=== PATIENT | female | born 2000 | race Caucasian/White ===

== ENCOUNTER 2020-10-08 09:03 | Emergency (ER) | payer OTHER ==
[~2020-10-08] VITALS: Ht 170.2 cm; Wt 80.8 kg
[2020-10-08] MEDS ORDERED: DEXAMETHASONE 4 MG TABLET PO ONE (10:00)
--- NOTE | 2020-10-08 10:01 | PHYS DOC ---
Past History Past Medical History: No Pertinent History Past Surgical History: No Surgical History Alcohol Use: Occasionally General Adult EDM: Chief Complaint: ALLERGIC REACTION HPI: HPI: 20 yo F who denies any significant past medical history presents the ED with complaints of pruritic rash over anterior neck that started yesterday, associated sore throat, dry eyes, upper chest pain that only occurs with deep respirations/coughing and a nonproductive cough. Does rport brief episode of nausea yesterday that has resolved-has tolerated oral intake/food since. No prior history of allergic reaction/angioedema/anaphylaxis. Cannot recall any new lotions/perfumes/detergents/body wash/medications/new foods or ingestion of something she's never eaten before, cannot recall any new physical contact with something across her neck. Lives alone. No known sick contacts. LMP September 20- (has dates on her phone, "I know I can't be "). Review of Systems: Review of Systems: Constitutional: Denies fever or chills Eyes: Denies change in visual acuity or itchy watery eyes or eye discharge HENT: Denies nasal congestion or rhinorrhea Respiratory: Denies dyspnea or hemoptysis Cardiovascular: Denies syncope or edema GI: Denies abdominal pain, vomiting, bloody stools or diarrhea : Denies dysuria or hematuria Musculoskeletal: Denies back pain or joint pain Integument: Denies diaphoresis or blisters Neurologic: Denies headache, neck stiffness, focal weakness or sensory changes Endocrine: Denies polyuria or polydipsia Lymphatic: Denies swollen glands Psychiatric: Denies depression or anxiety Current Medications: Current Meds: Current Medications Medications (Trade) Dose Ordered Sig/Pradeep Start Time Stop Time Status Last Admin Dose Admin Dexamethasone (Decadron) 10 mg 1X ONCE 10/08/20 10:00 10/08/20 10:01 UNV Allergies: Allergies: Allergies Coded Allergies Type Severity Reaction Last Updated Verified No Known Drug Allergies 10/08/20 No Physical Exam: PE: Constitutional: Well developed, well nourished, no acute distress, young/healthy/non-toxic appearance. HENT: Normocephalic, atraumatic, no nuchal rigidity, bilateral pharyngeal erythema, right tonsil worse than left, no palatal petechiae, oropharynx patent with no edema, no oral rash or ulcers Eyes: PERRLA, EOMI, conjunctiva normal, no discharge. Neck: Normal range of motion, supple, erythematous diffuse/not raised rash over both sides of neck with punctate areas of exfoliation, no desquamation or skin sloughing like a sunburn, no blisters, negative Nikolsky sign Cardiovascular: S1/2 present, regular rhythm, no reproducible cp Lungs & Thorax: Speaking in full sentences-clear speech, no drooling/protecting secretions, bilateral equal chest rise, no tachypnea or increased work of breathing Abdomen: soft, no tenderness, Skin: Warm, dry, see neck Extremities: No tenderness, no cyanosis, no lower extremity edema Neurologic: Alert and oriented X 3, normal motor function, normal sensory function, no focal deficits noted. [] Psychologic: Affect normal, judgement normal, mood normal. [] Current Patient Data: Vital Signs: Vital Signs Date Time Temp Pulse Resp B/P (MAP) Pulse Ox O2 Delivery O2 Flow Rate FiO2 10/08/20 09:05 98.0 69 16 131/68 (89) 97 Room Air EKG: EKG: [] Radiology/Procedures: Radiology/Procedures: []IMAGING REPORT Signed PATIENT: RADHA GREER ACCOUNT: [id number] : 2000 LOCATION: ER AGE: 20 SEX: F EXAM STATUS: REG ER ORD. PHYSICIAN: EUGENE SIMS DO REASON: sore throat, cough PROCEDURE: NECK SOFT TISSUE Soft tissue neck AP and lateral. HISTORY: Sore throat, cough AP and lateral soft tissue views were taken of the neck. There is no retropharyngeal soft tissue swelling. The epiglottis is normal. C-spine is in normal alignment. There is no significant tracheal narrowing noted. IMPRESSION: 1. Negative soft tissue neck. Electronically signed by: Nicanor Sullivan MD (10/08/2020 10:23 AM) [id number] DICTATED AND SIGNED BY: NICANOR SULLIVAN MD DATE: 10/08/20 1022 CC: NGA VORA DO; EUGENE SIMS DO ~MTH0 0 IMAGING REPORT Signed PATIENT: RADHA GREER ACCOUNT: [id number] : 2000 LOCATION: ER AGE: 20 SEX: F EXAM STATUS: REG ER ORD. PHYSICIAN: EUGENE SIMS DO REASON: sore throat, cough PROCEDURE: CHEST PA & LATERAL INDICATION: Reason: sore throat, cough / Spl. Instructions: / History: COMPARISON: None. FINDINGS: 2 view of chest obtained. No focal airspace consolidation. Cardiac silhouette is unremarkable. No gross osseous destructive lesion. IMPRESSION: * No focal airspace consolidation. Electronically signed by: Kenyatta Pittman MD (10/08/2020 10:10 AM) [id number] DICTATED AND SIGNED BY: KENYATTA PITTMAN MD DATE: 10/08/20 1008 CC: NGA VORA DO; EUGENE SIMS DO ~MTH0 0 Impressions: 0 criteria No need for further workup, as <2% chance of PE. If no criteria are positive and clinicians pre-test probability is <15%, PERC Rule criteria are satisfied. Heart Score: C/O Chest Pain: No Risk Factors: Risk Factors: DM, Current or recent (<one month) smoker, HTN, HLP, family history of CAD, obesity. Risk Scores: Score 0 - 3: 2.5% MACE over next 6 weeks - Discharge Home Score 4 - 6: 20.3% MACE over next 6 weeks - Admit for Clinical Observation Score 7 - 10: 72.7% MACE over next 6 weeks - Early Invasive Strategies Course & Med Decision Making: Course & Med Decision Making Pertinent Labs and Imaging studies reviewed. (See chart for details) COVID-19 CRITERIA: The patient was evaluated during the global COVID-19 pandemic, and that diagnosis was suspected/considered upon their initial presentation. Their evaluation, treatment and testing was consistent with current guidelines for patients who present with complaints or symptoms that may be related to COVID-19. Concern for allergic reaction with pruritic rash over her anterior neck with mild pharyngeal erythema. History concerning for allergic rxn +/- viral uri vs seasonal allergies. Chest pain is not typical presentation for cardiac/vascular emergencies - pain not severe. PERC rule negative. Patient is very well- appearing with no oral rash or edema. Is hemodynamically stable with no respiratory distress. Will discharge home with medrol dose pack/otc cepacol and strict ED return precautions were given for head or neck swelling, difficulties breathing, drooling or speech changes. Encouraged urgent outpatient follow-up with PMD and allergy/immunology as needed for allergy testing. Life-threatening processes were considered but are low suspicion at this time, given history, physical exam and ED workup. Pt was educated on all prescription medications and adverse effects. All patient's questions were answered and pt was stable at time of discharge. Life/limb-threatening differential includes but is not limited to, yazan's an michela, angioedema, anaphylaxis, peritonsillar abscess, retropharyngeal abscess, epiglottitis, bacterial tracheitis, uvulitis, sepsis, mastoiditis, traumatic injury, carotid/vertebral dissection, intracranial aneurysms or neurologic process. I spoken with the patient and her caregivers. I explained the patient's condition, diagnoses and treatment plan based on the information available to me at this time. I have answered the patient and her caregiver's questions and addressed any concerns. The patient and her caregivers have a good understanding of patient's diagnosis, condition and treatment plan as can be expected at this point. Vital signs have been stable. Patient's condition is stable and appropriate for discharge from the emergency department. Patient will pursue further outpatient evaluation with primary care physician or other designated or consulting physician as outlined in the discharge instructions. The patient and/or caregivers are agreeable to this plan of care and follow-up instructions have been explained in detail. The patient and/or caregivers have received these instructions in written form and have expressed an understanding of the discharge instructions. The patient and/or caregivers are aware that any significant change of condition or worsening of symptoms should prompt immediate return to this or the closest emergency department or call to 911. Wesley Disclaimer: Wesley Disclaimer: This electronic medical record was generated, in whole or in part, using a voice recognition dictation system. Departure Departure: Impression: Primary Impression: Allergic reaction Additional Impressions: Sore throat Person under investigation for COVID-19 Disposition: 01 DC HOME SELF CARE/HOMELESS Condition: STABLE Referrals: NGA VORA DO (PCP) within 1 week for evaluation. Return the immediately if you should develop any head or neck swelling, difficulties breathing, drooling or speech changes. Patient Instructions: Allergy Skin Testing, Rash, Viral Pharyngitis Additional Instructions: Return to ED immediately if your oxygen level drops below 90% (purchase a pulse oximetry at a medical supply store), difficulties breathing including rapid breathing or increased work of breathing (skin sucking under ribs), chest pain or stroke-like symptoms (facial droop, speech changes, arm/leg weakness). [facility] -as needed for allergy testing [facility] Call for appointment [phone] [facility] on the [facility] [address], [address] (Address for directions and navigation systems: [address] [place] [address]) EMERGENCY DEPARTMENT GENERAL DISCHARGE INSTRUCTIONS Thank you for coming to [facility] (ED) today and trusting us with you care. We trust that you had a positivie experience in our Emergency Department. If you wish to speak to the department management, you may call the director at [phone]. YOUR FOLLOW UP INSTRUCTIONS ARE FOLLOWS: 1. Do you have a private Doctor? If you do not have a private doctor, please ask for a resource list of physicians or clinics that may be able to assist you with follow up care. 2. The Emergency Physician has interpreted your x-rays. The X-Ray specialist will also review them. If there is a change in the findings, you will be notified in 48 hours when at all possible. 3. A lab test or culture has been done, your results will be reviewed and you w ill be notified if you need a change in treatment. ADDITIONAL INSTRUCTIONS AND INFORMATION: 1. Your care today has been supervised by a physician who is specially trained in emergency care. Many problems require more than one evaluation for a complete diagnosis and treatment. We recommend that you schedule your follow up appointment as recommended to ensure complete treatment of you illness or injury. If you are unable to obtain follow up care and continue to have a problem, or if your condition worsens, we recommend that you return to the ED. 2. We are not able to safely determine your condition over the phone nor are we able to give sound medical advice over the phone. For these safety reasons, if you call for medical advice we will ask you to come to the ED for further evaluation. 3. If you have any questions regarding these discharge instructions please call the ED at [phone]. SAFETY INFORMATION: In the interest of safety, wellness, and injury prevention; we encourage you to wear your sealbelt, if you smoke; quite smoking, and we encourage family to use a protective helmet for bicycling and other sporting events that present an increased risk for head injury. IF YOUR SYMPTOMS WORSEN OR NEW SYMPTOMS DEVELOP, OR YOU HAVE CONCERNS ABOUT YOUR CONDITION; OR IF YOUR CONDITION WORSENS WHILE YOU ARE WAITING FOR YOUR FOLLOW UP APPOINTMENT; EITHER CONTACT YOUR PRIMARY CARE DOCTOR, THE PHYSICIAN WHOSE NAME AND NUMBER YOU WERE GIVEN, OR RETURN TO THE ED IMMEDIATELY. Scripts Methylprednisolone (MEDROL) 4 Mg Tab.ds.pk 1 PKG PO UD for rash, #1 PKG Prov: EUGENE SIMS DO 10/08/20 EUGENE SIMS DO Oct 08, 2020 10:01
--- NOTE | 2020-10-08 10:13 | RAD ---
INDICATION: Reason: sore throat, cough / Spl. Instructions: / History: COMPARISON: None. FINDINGS: 2 view of chest obtained. No focal airspace consolidation. Cardiac silhouette is unremarkable. No gross osseous destructive les ion. IMPRESSION: * No focal airspace consolidation. Electronically signed by: Jamie Strong MD (10/08/2020 10:10 AM) [id number]
--- NOTE | 2020-10-08 10:25 | RAD ---
Soft tissue neck AP and lateral. HISTORY: Sore throat, cough AP and lateral soft tissue views were taken of the neck. There is no retropharyngeal soft tissue swel ling. The epiglottis is normal. C-spine is in normal alignment. There is no significant tracheal narr owing noted. IMPRESSION: 1. Negative soft tissue neck. Electronically signed by: Nicanor Sullivan MD (10/08/2020 10:23 AM) [id number]
[2020-10-08] MEDS ORDERED: METH4TAB2 PO (11:08)
[2020-10-08 11:15] VITALS: BP 123/64
== END 2020-10-08 11:14 | disposition home or self-care (01) ==
LOC: ER 09:03
DX: T78.40XA Allergy, unspecified, initial encounter (principal); Z20.822 Contact with and (suspected) exposure to COVID-19; J02.9 Acute pharyngitis, unspecified; M54.2 Cervicalgia
CPT/HCPCS: 70360; 71046; 81025; 87070; 87880; 99284; C9803; J8540; U0003; U0005